=== PATIENT | female | born 1960 | race African-American/Black ===

== ENCOUNTER 2020-07-25 23:27 | Emergency (ER) | payer SELFPAY ==
[~2020-07-25] VITALS: Ht 167.6 cm; Wt 72.6 kg
[2020-07-26] MEDS ORDERED: TETRACAINE HCL 0.5% OPTH(EYE) SOLN 4ML EACHEYE ONE (06:30)
[2020-07-26] MEDS ORDERED: FLUORESCEIN SOD OPTH TEST STRIP OP ONE (06:30)
[2020-07-26 07:36] VITALS: BP 155/81
== END 2020-07-26 07:52 | disposition home or self-care (01) ==
LOC: ER 23:44
DX: H57.89 Other specified disorders of eye and adnexa (principal); H53.8 Other visual disturbances; F17.210 Nicotine dependence, cigarettes, uncomplicated